=== PATIENT | female | born 1990 | race Caucasian/White ===

== ENCOUNTER 2023-12-23 18:27 | Emergency (ER) | payer BC, SELFPAY ==
[2023-12-23 18:39] VITALS: BP 149/87
[2023-12-23 19:05] LABS: % Basophils 0.5 % (0-2); % Eosinophils 1.2 % (0-6); % Immature Granulocytes 0.4 % (0-0.5); % Lymphocytes 18.8 % (20.5-51.1); % Neutrophils 74.1 % (42.2-75.2); Absolute Basophils 0.1 10^3/uL (0-0.2); Absolute Eosinophils 0.2 10^3/uL (0-0.7); Absolute Immature Granulocytes 0.1 10^3/uL (0-0.05); Absolute Lymphocytes 2.4 10^3/uL (1.2-3.4); Absolute Monocytes 0.6 10^3/uL (0.1-0.6); Absolute Neutrophils 9.4 10^3/uL (1.4-6.5); Hematocrit 36.5 % (37.0-47.0); Hemoglobin 12.7 g/dL (12.0-16.0); Mean Corp Hgb Conc. 34.8 g/dL (33.0-37.0); Mean Corpuscular Hgb 30.6 pg (27.0-31.0); Mean Platelet Volume 9.6 fL (7.4-10.4); Nucleated Red Blood Cells % 0 %; Platelet Count 308 10^3/uL (130-400); Red Blood Cell Count 4.15 10^6/uL (4.20-5.40); Red Cell Dist. Width 12.6 % (11.5-14.5); White Blood Cell Count 12.7 10^3/uL (4.8-10.8)
[2023-12-23 19:20] LABS: ALT (SGPT) 14 U/L (0-35); AST (SGOT) 17 U/L (14-36); Albumin 4.4 g/dl (3.5-5.0); Alkaline Phosphatase 77 U/L (38-126); Blood Urea Nitrogen 11 mg/dl (7-17); Calcium 9.6 mg/dl (8.4-10.2); Carbon Dioxide 25 mmol/L (22-30); Chloride 101 mmol/L (98-107); Glucose 94 mg/dl (70-99); Potassium 4.4 mmol/L (3.5-5.1); Sodium 137 mmol/L (135-145); Total Bilirubin 0.4 mg/dl (0.2-1.3); Total Protein 7.5 g/dl (6.3-8.2); eGFR > 60.00
[2023-12-23 19:52] LABS: HCG, Serum Qualitative Screen Negative
[2023-12-23 19:59] LABS: Lipase 110 U/L (23-300)
[2023-12-23 21:11] LABS: Urine Albumin Negative (Neg - Trace); Urine Bilirubin Negative (Negative); Urine Character Clear (Clear); Urine Color Yellow; Urine Glucose Negative (Negative); Urine Ketone Negative (Negative); Urine Leukocyte Negative (Negative); Urine Nitrite Negative (Negative); Urine Occult Blood Negative (Negative); Urine Urobilinogen Negative (Neg - 1+)
[2023-12-23] MEDS: OMNIPAQUE 50 ML PO (21:36)
[2023-12-23 22:00] VITALS: BP 131/89
--- NOTE | 2023-12-23 23:43 | ED.GENMED ---
History of Present Illness
General
Chief Complaint: Abdominal Pain
Source: patient
Exam Limitations: none
Time Seen by Provider: 12/23/23 20:06
Nursing documentation reviewed up to this point in time: agreed with
Travel History
Have you had any contact with someone who has COVID-19?: No
Do you have any symptoms of coronavirus? Fever > 100 degrees, chills, cough, shortness of breath, sore throat, loss of taste or smell, muscle aches, or headache?: No
History of Present Illness
History of Present Illness:
Patient to ED with sudden onset of RLQ abdominal pain. Reports pain as severe and stabbing. No prior history of this pain. Denies fever/chills, n/v/d. Brought to ED by mother for eval.
Past History
Past History
ED Past Medical History: Psychiatric (Bipolar, SI)
ED Past Surgical History: None
Social History
Tobacco: Smoker
Alcohol: None
Drug: None
Personal: Other
Living: with family
Employment: Other
Family History
Family History: Other
Review of Systems
Review of Systems
Allergies reviewed?: Yes
All Other Systems: ROS reviewed and negative except as documented in HPI and ROS
Constitutional: Reports no symptoms
EENT: Reports no symptoms
Respiratory: Reports no symptoms
Cardiac: Reports no symptoms
ABD/GI: Reports abdominal pain
: Reports no symptoms
Musculoskeletal: Reports no symptoms
Skin: Reports no symptoms
Neurological: Reports no symptoms
Psychiatric: Reports no symptoms
Phy Exam
General Physical Exam
General Presentation: well appearing
General age: appears stated age
General Skin: warm and dry
General Habitus: obese
General Mental: alert
Pulmonary Exam
Pulmonary Exam: no respiratory distress and chest non tender
Gastrointestinal Exam
Gastrointestinal Exam: normal bowel sounds, soft, no organomegaly, non distended and no cva tenderness
Palpation: left upper quadrant: No tenderness, left lower quadrant: No tenderness, right upper quadrant: No tenderness and right lower quadrant: Mild tenderness
Musculoskeletal Exam
Musculoskeletal Exam: full ROM and neuro vasc intact
Skin Exam
Skin Exam: normal color, warm/dry and no rash
Psychiatric Exam
Psychiatric Exam: normal mood/affect
Course
Orders/Labs/Results
Orders:
Orders
12/23/23 18:46
Test Result ONCE
12/23/23 18:50
CMP [Comprehensive Metabolic Panel] Urgent
Complete Blood Count/With Diff Urgent
HCG, Serum Qualitative Screen Urgent
Lipase Urgent
12/23/23 20:13
Pelvis (Non Obstetric) US [US Pelvis Only (non-obstetric)] Urgent
Comment:
Reason For Exam: pelvic pain
12/23/23 21:04
Urinalysis Reflex To Culture Urgent
Date Specimen was Collected: 12/23/23
Time Specimen was Collected: 18:46
12/23/23 21:25
Iohexol [Omnipaque] See Protocol PO NOW STA
Abnormal Lab Results
12/23/23
18:50
WBC 12.7 H 10^3/uL
(4.8-10.8)
RBC 4.15 L 10^6/uL
(4.20-5.40)
Hct 36.5 L %
(37.0-47.0)
Abs Immat Gran (auto) 0.1 H 10^3/uL
(0-0.05)
Absolute Neuts (auto) 9.4 H 10^3/uL
(1.4-6.5)
Lymphocytes % 18.8 L %
(20.5-51.1)
12/23/23 18:50
12/23/23 18:50
Vital Signs
Initial and Last Documented VS:
Initial Vital Signs
Temp Pulse Resp BP Pulse Ox
98.1 F 104 18 149/87 97
12/23/23 18:39 12/23/23 18:39 12/23/23 18:39 12/23/23 18:39 12/23/23 18:39
Last Documented Vital Signs
Temp Pulse Resp BP Pulse Ox
98.1 F 106 18 145/84 97
12/23/23 18:39 12/23/23 23:47 12/23/23 22:00 12/23/23 23:47 12/23/23 23:47
*Critical Care Note
Total Time (30-74mins, 75-104mins- exclusive of procedures): Not Applicable
Update Note
Update Note:
CT ready for patient. Patient has decided that her pain is resolving and now declines CT. States she is tired and would like to go home. States she will follow up with her PCP, return here if pain returns.
ED Attending Note
-
Portions of this chart may have been created with voice recognition software.� Occasional wrong word or��sound alike� substitutions may have occurred due to the inherent limitations of voice recognition software.
Discharge Plan
Departure
Patient Disposition: Home (Routine Discharge)
Date of Disposition: 12/23/23
Time of Disposition: 23:34
Patient with high blood pressure during this ER visit?: No
Condition: Good
Covid-19: Not Applicable
Discharge Problem:
Abdominal pain
Instructions: Abdominal Pain
Prescriptions:
No Action
aripiprazole 2 MG tablet
5 mg PO DAILY
levothyroxine 25 MCG tablet
25 mcg PO DAILY
famotidine [Acid Controller] 20 MG tablet
20 mg PO HS PRN (Reason: reflux)
Carbamazepine
200 mg PO BID
nitrofurantoin monohyd/m-cryst 100 MG capsule
100 mg PO BID Qty: 14 0RF
Referrals:
Jade Hollis PA-C [Family Provider] - Tomorrow
Activity Restrictions/Additional Instructions:
CT exam was recommended for you tonight but cancelled at your request, therefore your work-up is not complete. Your labs and ultrasound are normal and have not revealed a cause for your pain. Please follow up with your family doctor in the AM.
Return to the emergency department immediately for any changes in/worsening of your symptoms.
Interventions
Interventions:
*Risk Screen - Suicide Last Done: 12/23/23 19:38
*General Assessment Last Done: 12/23/23 19:38
*Neglect/Abuse Screening Last Done: 12/23/23 19:38
ED- Fall Risk Assessment Last Done: 12/23/23 19:53
*ED COVID-19 Vaccine History Last Done: 12/23/23 19:38
*Nursing Disposition Last Done: 12/23/23 23:47
OB-Lgagwh-Tgqmrulgaa Assessment Last Done: 12/23/23 19:53
Discharge Date and Time
Discharge Date/Time: 12/23/23 23:48
Print Language: [place]
[2023-12-23 23:46] VITALS: BP 145/84
[2023-12-23 23:47] VITALS: BP 145/84
== END 2023-12-23 23:48 | disposition home or self-care (01) ==
LOC: EMR 18:27
PROVIDERS: EMERGENCY PHYSICIAN Emergency Medicine; FAMILY PHYSICIAN Physician Assistant
DX: R10.31 Right lower quadrant pain (principal); F31.9 Bipolar disorder, unspecified; F17.200 Nicotine dependence, unspecified, uncomplicated
CPT/HCPCS: 99284; 76856; 80053; 81003; 83690; 84703; 85025

== ENCOUNTER → 2025-03-21 11:10 | Outpatient (REF) | payer BC, SELFPAY | LOC: DHSLP 11:10 | PROVIDERS: ATTENDING PHYSICIAN Internal Medicine Cardiovascular Disease | DX: G47.33 Obstructive sleep apnea (adult) (pediatric) (principal) | CPT/HCPCS: 95800 ==